=== PATIENT | male | born 1960 | race African-American/Black ===

== ENCOUNTER → 2018-02-25 15:26 | Outpatient (POV) | payer BC, SELFPAY | DX: Z00.00 Encounter for general adult medical examination without abnormal findings (principal) ==

== ENCOUNTER → 2018-10-19 11:21 | Outpatient (CLI) | payer BC, SELFPAY ==
--- NOTE | 2018-10-19 11:27 | XR_ITS ---
XR finger LT min 2V Ordering Physician: Misti Starks MD Patient Age: 58 years: Male HISTORY: ITS.REASON: LEFT THUMB PAIN Left thumb pain no injury TECHNIQUE: 3 views of the left thumb COMPARISON :None FINDINGS No fracture nor dislocation. Bones well mineralized. No erosive changes... Suggestion of mild early hypertrophic changes on the anterior base the first metacarpal at first carpal metacarpal joint which may reflect some early degenerative changes here.-But Unimpressive. Also Only perhaps scant slight narrowing at the radial aspect first MCP joint which may reflect some very early degenerative changes here. The IP joint of thumb intact. Only slight sharpening at its lateral margin IMPRESSION: . No prominent findings. Minor unimpressive observations. ... Suggestion of scant joint space narrowing lateral first MCP joint which may reflect some early degenerative changes here.. ... Only Question subtle early hypertrophic changes about the first carpal metacarpal joint. May also reflect some minor early degenerative features at this level.
== END ==
PROVIDERS: PCP Family Medicine; Visit Provider Family Medicine
DX: M79.645 Pain in left finger(s) (principal)
CPT/HCPCS: 73140

== ENCOUNTER → 2019-04-28 13:27 | Outpatient (POV) | payer BC, SELFPAY | DX: Z00.00 Encounter for general adult medical examination without abnormal findings (principal) ==

== ENCOUNTER → 2019-10-13 14:09 | Outpatient (POV) | payer BC, SELFPAY | DX: Z00.00 Encounter for general adult medical examination without abnormal findings (principal) ==

== ENCOUNTER → 2021-01-24 13:07 | Outpatient (POV) | payer BC, SELFPAY | DX: Z00.00 Encounter for general adult medical examination without abnormal findings (principal) ==

== ENCOUNTER → 2022-06-05 09:16 | Outpatient (CLI) | payer BC, SELFPAY | PROVIDERS: PCP Family Medicine; Visit Provider Surgery | DX: Z01.812 Encounter for preprocedural laboratory examination (principal); Z20.822 Contact with and (suspected) exposure to COVID-19; Z12.11 Encounter for screening for malignant neoplasm of colon; Z86.010 Personal history of colon polyps | CPT/HCPCS: C9803; U0003; U0005 ==

== ENCOUNTER 2022-06-07 07:14 | Day surgery (SDC) | payer BC, SELFPAY ==
[2022-06-05 08:43] VITALS: BMI 37.9
[2022-06-07 07:29] VITALS: BP 135/68; PULSE 110; RESP 18; TEMP 37.4; O2SAT 95
--- NOTE | 2022-06-07 07:52 | P.PN_ITS ---
[facility] Anesthesia Checklist - Patient Identification Patient Identification: Arm Band, Verbal (Name & ) - Structural Data Admitted From: Home Planned Operative Procedure/s: Colonoscopy Consent for Planned Operative Procedure(s) Verified: Yes Verified Documents: Surgical Consent - NPO Status Verified Time NPO: 04:00 - Airway Assessment C-Spine Mobility Assessed: Yes TMJ Mobility Assessed: Yes Dentition: Good Dentition - Neurological Assessment Level of Consciousness: Awake, Alert, Appropriate - Anesthesia Plan Anesthesia Risk discussed: Yes ASA Class: II Anesthesia Type: MAC [facility] History I have reviewed the patient's past medical history: Yes Medical History: Reports:: Internal Pacemaker Denies:: Cancer, Diabetes Mellitus Type 1, Diabetes Mellitus Type 2, MRSA, Seizures *Have you ever received a pneumonia vaccine?: Yes *Have you received a flu vaccine this season?: No Anesthesia experience/problems:: none Laterality Cases: Bilateral: Arthroscopy Hip Other Surgeries: Yes: Pacemaker Amputation: No - *Social History Last grade of school completed: Advanced degree Smoking Status: Never smoker Alcohol Intake: former Substance Use Type: denies use *Occupational Status:: retired *Travel in the last 8 weeks: None Family Hx:: Other
[2022-06-07 08:20] VITALS: O2SAT 95
[2022-06-07 08:53] VITALS: BP 99/65; PULSE 86; RESP 18; TEMP 36.9; O2SAT 92
--- NOTE | 2022-06-07 08:54 | HMH.SCOPE ---
- Procedure: Date: 06/07/22 Patient Date of :: 1960 Procedure Performed:: Total colonoscopy to terminal ileum with polypectomy using snare and biopsy Indications:: Patient is a 61-year-old male with family history of colon cancer in his grandfather and father. He has had colonoscopies in 1997 and in [address] Akins reportedly unremarkable. I performed colonoscopy in September 2016 and he had a diminutive polyp. 5-year follow-up colonoscopy was recommended. Performing Provider:: Gavino Brunner MD Referring Provider:: Hai Starks Sedation:: MAC sedation Procedure:: Patient was taken to endoscopy procedure room. He was positioned in lateral decubitus position. Adequate intravenous sedation was achieved. Digital examination was performed. Variable stiffness Olympus colonoscope was inserted via the anus. Is advanced to the cecum. Ileocecal valve and appendiceal orifice were clearly identified. Colonoscope was advanced a short distance into the terminal ileum which appeared grossly normal. Colonoscope was slowly withdrawn through the colon with careful surveillance. In the ascending colon there was a tiny sessile diminutive polyp which appeared adenomatous removed in a piecemeal fashion using biopsy forceps. In the descending colon there was a's possible lymphoid aggregate biopsied. In the descending colon just distal to this there were a couple of potential polyps, likely lymphoid aggregate, removed with biopsy forceps. Similar lesion was biopsied in the sigmoid colon. The rectosigmoid there were several hyperplastic appearing polyps removed with biopsy forceps. In the rectum there was a small adenomatous appearing polyp measuring about 5 mm removed with cold snare. Retroflexion within the rectum revealed nonbleeding internal hemorrhoids. Colonoscope was withdrawn. Findings:: Tiny diminutive adenomatous appearing cecal polyp Several possible lymphoid aggregate biopsied Hyperplastic appearing rectosigmoid polyps removed with biopsy Adenomatous appearing rectal polyp removed with cutting snare Recommendations:: Patient had a couple of adenomatous appearing polyps. Follow-up colonoscopy pending pathology. Given family history and adenomatous polyp likely 3 years. Complications:: None immediately apparent Estimated blood obtained (mL): 2
[2022-06-07 09:03] VITALS: BP 105/62; PULSE 82; RESP 18; TEMP 36.9; O2SAT 94
[2022-06-07 09:13] VITALS: BP 118/64; PULSE 83; RESP 18; TEMP 36.9; O2SAT 96
[2022-06-07 09:32] VITALS: BP 127/80; PULSE 84; RESP 18; TEMP 36.9; O2SAT 97
== END 2022-06-07 09:32 | disposition home or self-care (01) ==
LOC: OUTP 07:16
PROVIDERS: PCP Family Medicine; Visit Provider Surgery
PROC: 0DJD8ZZ Inspection of Lower Intestinal Tract, Via Natural or Artificial Opening Endoscopic (ICD-10-PCS; CPT 45380; principal; 2022-06-07 08:30)
DX: Z12.11 Encounter for screening for malignant neoplasm of colon (principal); K63.5 Polyp of colon; Z86.010 Personal history of colon polyps; Z80.0 Family history of malignant neoplasm of digestive organs; Z79.899 Other long term (current) drug therapy
CPT/HCPCS: 45380; 45385

== ENCOUNTER 2022-06-12 15:29 | Emergency (ER) | payer BC, OTHER, SELFPAY ==
[2022-06-12 15:29] VITALS: BP 108/61; PULSE 81; RESP 15; TEMP 36.8; O2SAT 96; BMI 38.0
--- NOTE | 2022-06-12 15:44 | HMH.EDGENADL ---
ED Disposition Clinical Impression: Transaminitis, Elevated serum creatinine Disposition: Home, Self-Care Condition on Discharge: Good Additional Instructions: At this point it was felt you are safe to be discharged home from the emergency department. Please stop taking your amlodipine and doxazosin until you follow-up with Dr. Starks. Please call and schedule an appointment with Dr. Starks in the coming days for continued evaluation. If new or worsening symptoms please do not hesitate to return to the emergency department. Referrals: Provider,Referral, [Referring] - - Critical Care Critical Care Time: No Attestation: On 06/12/22, the high probability of a clinically significant, sudden or life threatening deterioration of the following system(s) required my full and direct attention, intervention and personal management. The time I documented below is in addition to time spent performing reported procedures but includes the following listed in this critical care notation. Medical Decision Making - Joel Inquiry Pt receiving controlled substance: No Vital Signs: 06/12/22 15:29 06/12/22 16:00 Temperature 98.3 F Temperature Source Oral Pulse Rate 74 Pulse Rate [Right Radial] 81 Respiratory Rate 15 18 Blood Pressure 134/66 Blood Pressure [Right Arm] 108/61 L Blood Pressure Mean 82 Blood Pressure Mean [Right Arm] 76 Blood Pressure Source [Right Arm] Automatic Cuff Blood Pressure Position [Right Arm] Sitting 02 Sat by Pulse Oximetry 96 98 Oxygen Delivery Method Room Air - Lab Data Lab Results 06/12/22 15:39: WBC 8.9, RBC 5.05, Hgb 16.7, Hct 45.3, MCV 89.8, MCH 33.2 H, MCHC 37.0 H, RDW 13.7, Plt Count 144, MPV 11.4 H, Neut % (Auto) 73.7, Lymph % (Auto) 20.7, Beau[place] % (Auto) 4.2, Eos % (Auto) 0.5, Baso % (Auto) 0.8, Neut # (Auto) 6.5, Lymph # (Auto) 1.8, Beau[place] # (Auto) 0.4, Eos # (Auto) 0.0, Baso # (Auto) 0.1 06/12/22 15:39: Sodium 131 L, Potassium 3.8, Chloride 96 L, Carbon Dioxide 29, Anion Gap 9.8, BUN 29 H, Creatinine 1.40 H, Estimated Creat Clear 82, Estimated GFR 51 L, Est GFR ( Amer) 62, Glucose 150 H, Calcium 7.8 L, Magnesium 2.2, Total Bilirubin 3.4 H, AST 168 H, ALT 165 H, Alkaline Phosphatase 117, Total Protein 6.5, Albumin 3.3 L, Globulin 3.2, Albumin/Globulin Ratio 1.0 L, TSH 2.46, Thyroxine (T4) 9.9 Result diagrams: 06/12/22 15:39 06/12/22 15:39 Orders (Tests/Meds): ED MEDICATIONS Discontinued Medications Generic Name Dose Route Start Last Admin Trade Name Freq PRN Reason Stop Dose Admin Lactated Ringer's 1,000 mls @ 999 mls/hr 06/12/22 15:45 06/12/22 15:48 Lactated Ringer's 1000 Ml Bag IV 06/12/22 16:45 999 mls/hr .Q1H1M MIGUEL A Administration Ondansetron HCl 4 mg 06/12/22 15:48 06/12/22 15:49 Ondansetron 4mg/5ml Velma Udc PO 06/12/22 15:49 Not Given ONCE ONE Ondansetron HCl 4 mg 06/12/22 15:49 06/12/22 15:51 Ondansetron 4mg/2ml Vial IV 06/12/22 15:50 4 mg ONCE ONE Administration - ECG Data Tracing #1 Independently interpreted by me, rate is 78, rhythm is regular, axis is regular, QTC 434, no significant ST elevation in anatomical contiguous leads. Medical Decision Narrative: In summary this is a 61-year-old male with past medical history described above who presents emergency department for evaluation of isolated hypotension at clinic for routine visit. Patient is hemodynamically stable upon arrival, normotensive, afebrile, with a nonfocal exam and no acute complaints. Given that patient has had decreased p.o. intake and recent colonoscopy work-up will be conducted with hematologic labs, EKG. Initial interventions include crystalloid bolus, Zofran. Work-up is reviewed by me, hematologic labs are remarkable for elevated creatinine, elevated transaminases of undetermined significance. Patient underwent multiple hours in the emergency department where he was largely asymptomatic, had multiple systolics greater than 100. He
--- NOTE | 2022-06-12 15:49 | ECG_ITS ---
APPROVED REPORT Exam: Resting ECG HR:78 bpm ECG Measurements Heart Rate 78 AXES MD 134 P 43 QRSd 93 QRS 41 QT 401 T 26 QTc 434 Conclusion SINUS RHYTHM NORMAL ECG UNCONFIRMED REPORT Electronically signed by : David Linares MD 06/12/2022 20:59:31
[2022-06-12 16:00] VITALS: BP 134/66; PULSE 74; RESP 18; O2SAT 98
[2022-06-12 16:36] LABS: Alanine Aminotransferase 165 U/L (12-78); Albumin Level 3.3 g/dl (3.5-5.0); Alkaline Phosphatase 117 U/L (38-126); Anion Gap 9.8 mEq/L (5-15); Aspartate Amino Transferase 168 U/L (17-59); Bilirubin,Total 3.4 mg/dl (0.2-1.3); Blood Urea Nitrogen 29 mg/dl (9-20); Calcium 7.8 mg/dl (8.4-10.2); Carbon Dioxide 29 mmol/L (22.0-30.0); Chloride 96 mmol/L (98-107); Creatinine Clearance Estimated 82 mL/min (50-200); Estimated Glomerular Filt Rate 51 ml/min (>60); GFR (African American) 62 ML/MIN (>60); Globulin 3.2 g/dL (1.3-3.2); Glucose 150 mg/dl (74-100); Magnesium 2.2 mg/dl (1.6-2.3); Potassium 3.8 mmoL/L (3.5-5.1); Sodium 131 mmol/L (136-145); Total Protein,Serum 6.5 g/dl (6.3-8.2)
[2022-06-12 16:43] LABS: Basophils # 0.1 K/mm3 (0-0.2); Basophils % 0.8 % (0.1-2.0); Eosinophils % 0.5 % (0.1-12.0); Hematocrit 45.3 % (42.0-52.0); Hemoglobin 16.7 g/dL (14.1-18.0); Lymphocytes # 1.8 K/mm3 (0.7-4.5); Lymphocytes % 20.7 % (10-50); Mean Corpuscular Hemoglobin 33.2 pg (27.0-31.2); Mean Corpuscular Volume 89.8 fl (80-94); Mean Platelet Volume 11.4 fl (7.4-10.4); Monocytes # 0.4 K/mm3 (0.1-1.0); Monocytes % 4.2 % (1.7-9.3); Neutrophils # 6.5 K/mm3 (1.8-7.8); Neutrophils % 73.7 % (37.0-80.0); Platelet Count 144 K/mm3 (142-424); Red Blood Count 5.05 M/mm3 (4.60-6.20); Red Cell Distribution Width 13.7 % (11.5-17.5); White Blood Count 8.9 K/mm3 (4.8-10.8)
[2022-06-12 16:54] LABS: T4 (Thyroxine) 9.9 ug/dl (5.53-11.0)
[2022-06-12 17:07] LABS: Thyroid Stimulating Hormone 2.46 uIU/mL (0.465-4.68)
--- NOTE | 2022-06-12 17:50 | PC.NURSE ---
ROUNDED ON PT , IV FLUIDS INFUSING FAMILY AT BS
--- NOTE | 2022-06-12 18:13 | PC.NURSE ---
TALKING TO DR MUÑOZ
[2022-06-12 18:58] VITALS: BP 138/86; PULSE 89; RESP 18; TEMP 36.7; O2SAT 95
== END 2022-06-12 18:58 | disposition home or self-care (01) ==
PROVIDERS: Emergency Provider Emergency Medicine; PCP Family Medicine
DX: R74.01 Elevation of levels of liver transaminase levels (principal); R53.1 Weakness; R53.83 Other fatigue; I10 Essential (primary) hypertension
CPT/HCPCS: 80053; 83735; 84436; 84443; 85025; 93005; 96361; 96374; 99283; J2405

== ENCOUNTER 2025-02-04 12:53 | Outpatient (CLI) | payer MEDICARE, SELFPAY ==
[2025-02-04 13:52] LABS: Hemoglobin A1C 5.6 % (4.0-6.0)
--- OUTSIDE RECORDS SUMMARY | 2025-02-10 19:37 | XMS_ITS ---
Author Organization Unknown Problems Date Problem Result OnSetDate Icd10 SnomedCode Severity 02/05/2024 00:00:00 BMI 39.0-39.9,adult Z68.39 [id number]
--- OUTSIDE RECORDS SUMMARY | 2025-02-10 19:37 | XMS_ITS ---
Author Organization Unknown Medications Medication Instructions Effective Dates (start - stop) Status latanoprost 0.05 MG/ML Ophth almic Solution [id number]:00:00.000+00 :00 - Completed latanoprost 0.05 MG/ML Ophth almic Solution [id number]:00:00.000+00 :00 - Completed atenolol 100 MG Oral Tablet 2021T:00:00.000+00 :00 - Completed latanoprost 0.05 MG/ML Ophth almic Solution [id number]:00:00.000+00 :00 - Completed atenolol 100 MG Oral Tablet 2021:00:00.000+00 :00 - Completed atenolol 100 MG Oral Tablet 2022:00:00.000+00 :00 - Completed amlodipine 5 MG Oral Tablet 2022:00:00.000+00 :00 - Completed atenolol 100 MG Oral Tablet 2022:00:00.000+00 :00 - Completed cephalexin 500 MG Oral Capsule 2 [id number]:00:00.000+00 :00 - Completed latanoprost 0.05 MG/ML Ophth almic Solution [id number]:00:00.000+00 :00 - Completed - [id number]:00 :00.000+00 :00 - Completed latanoprost 0.05 MG/ML Ophth almic Solution [id number]:00:00.000+00 :00 - Completed latanoprost 0.05 MG/ML Ophth almic Solution [id number]:00:00.000+00 :00 - Completed allopurinol 300 MG Oral Tablet 2 [id number]:00:00.000+00 :00 - Completed alprazolam 0.5 MG Oral Tablet 25-05-11:00:00.000+00 :00 - Completed doxazosin 4 MG Oral Tablet :00:00.000+00 :00 - Completed allopurinol 300 MG Oral Tablet [id number]:00:00.000+00 :00 - Completed latanoprost 0.05 MG/ML Ophth almic Solution [id number]:00:00.000+00 :00 - Completed latanoprost 0.05 MG/ML Ophth almic Solution [id number]:00:00.000+00 :00 - Completed amlodipine 5 MG Oral Tablet 2021:00:00.000+00 :00 - Completed latanoprost 0.05 MG/ML Ophth almic Solution [id number]:00:00.000+00 :00 - Completed latanoprost 0.05 MG/ML Ophth almic Solution [id number]:00:00.000+00 :00 - Completed amlodipine 5 MG Oral Tablet 2021:00:00.000+00 :00 - Completed - [id number]:00 :00.000+00 :00 - Completed amlodipine 5 MG Oral Tablet 2022:00:00.000+00 :00 - Completed allopurinol 300 MG Oral Tablet 2 [id number]:00:00.000+00 :00 - Completed allopurinol 300 MG Oral Tablet 2 [id number]:00:00.000+00 :00 - Completed alprazolam 0.5 MG Oral Tablet 24-09-07:00:00.000+00 :00 - Completed alprazolam 0.5 MG Oral Tablet 25-07-08:00:00.000+00 :00 - Completed alprazolam 0.5 MG Oral Tablet 23-02-10:00:00.000+00 :00 - Completed alprazolam 0.5 MG Oral Tablet 20 26-12-05:00:00.000+00 :00 - Completed alprazolam 0.5 MG Oral Tablet 20 24-08-06:00:00.000+00 :00 - Completed alprazolam 0.5 MG Oral Tablet 24-06-10:00:00.000+00 :00 - Completed alprazolam 0.5 MG Oral Tablet 20 25-11-04:00:00.000+00 :00 - Completed alprazolam 0.5 MG Oral Tablet 20 25-04-12:00:00.000+00 :00 - Completed alprazolam 0.5 MG Oral Tablet 25-03-10::00.000+00 :00 - Completed alprazolam 0.5 MG Oral Tablet 20 24-01-08:00:00.000+00 :00 - Completed alprazolam 0.5 MG Oral Tablet 24-10-09:00:00.000+00 :00 - Completed hydrochlorothiazide 12.5 MG / irbesartan 300 MG Oral Tablet [id number]:00:00.000+ 00 :00 - Completed dorzolamide 20 MG/ML / timol ol 5 MG/ML Ophthalmic Solution [id number]:00:00.000+00 :00 - Completed dorzolamide 20 MG/ML / timol ol 5 MG/ML Ophthalmic Solution [id number]:00:00.000+00 :00 - Completed hydrochlorothiazide 12.5 MG / irbesartan 300 MG Oral Tablet [id number]:00:00.000+ 00 :00 - Completed dorzolamide 20 MG/ML / timol ol 5 MG/ML Ophthalmic Solution [id number]:00:00.000+00 :00 - Completed hydrochlorothiazide 12.5 MG / irbesartan 300 MG Oral Tablet [id number]:00:00.000+ 00 :00 - Completed dorzolamide 20 MG/ML / timol ol 5 MG/ML Ophthalmic Solution [id number]:00:00.000+00 :00 - Completed dorzolamide 20 MG/ML / timol ol 5 MG/ML Ophthalmic Solution [id number]:00:00.000+00 :00 - Completed dorzolamide 20 MG/ML / timol ol 5 MG/ML Ophthalmic Solution [id number]:00:00.000+00 :00 - Completed hydrochlorothiazide 12.5 MG / irbesartan 300 MG Oral Tablet [id number]:00:00.000+ 00 :00 - Completed Patient Care team information Name Category Status Period Participants - - Proposed period not known -
== END 2025-02-04 23:59 | disposition home or self-care (01) ==
LOC: LAB 12:56
PROVIDERS: PCP Family Medicine; Visit Provider Family Medicine
DX: R73.9 Hyperglycemia, unspecified (principal)
CPT/HCPCS: 36415; 83036

== ENCOUNTER 2025-06-10 06:20 | Day surgery (SDC) | payer MEDICARE, SELFPAY ==
[2025-06-08 15:35] VITALS: BMI 39.5
--- NOTE | 2025-06-10 06:18 | P.HP_ITS ---
HPI HPI HPI: Patient presents for follow-up colonoscopy. He is a 64-year-old male with family history of colon cancer. He had colonoscopies done by Dr. Akins in 1997 and in 2008 which were reportedly normal. I had performed colonoscopy 09/24/2016 at which time he had polyps removed and follow-up on 06/07/2022. In 2021 he had a tubular adenoma in the ascending colon and a rectal tubular adenoma along with multiple hyperplastic polyps. He has a family history of colon cancer in his paternal grandfather. Patient states that he did have some difficulty with the GoLytely prep. Given the multiple precancerous adenomatous polyps along with the family history recommendations were for 3-year follow-up colonoscopy. [facility] Disclaimer: The information contained in this section may have been updated after the patient was seen, as this information can be updated by other users. Medical History Gout Glaucoma Hyperlipidemia Hypertension Surgical History History of colonoscopy History of right hip replacement History of left hip replacement Family History Other Colon cancer Family history of hypertension Social History Smoking Status: Never smoker alcohol intake: never substance use type: denies use current occupational status: retired Travel in the last 8 weeks?: None Have you lived/traveled outside US in past 30 days?: No Contact w/someone who lives/traveled outside US past 30 days?: No Exposure to someone with infectious disease in past 14 days?: No Do you have a fever (greater than 100.4 F or 38 C)?: No Have you tested positive for COVID-19?: No Exposed to someone with COVID-19 in past 14 days?: No Do you have a sore throat?: No Do you have a cough?: No Do you have any weakness?: No Are you experiencing any nausea/vomitting?: No Do you have any diarrhea?: No Are you experiencing any unusual bleeding?: No Do you have any muscle aches/pain?: No Do you have any abdominal pain?: No Are you experiencing loss of taste or smell?: No Other Medical History Have you received the Flu Vaccine for this season: No Have you received the Pneumonia Vaccine: No Review of Systems Review of Systems Review of systems:: pertinent systems reviewed and negative unless documented below Meds Home Medications and Allergies Home Medications ?Medication ?Instructions ?Recorded ?Confirmed ?Type allopurinol 300 mg tablet 300 mg PO DAILY . 06/05/22 0 06/10/25 History amlodipine 5 mg tablet 10 mg PO DAILY High blood pr essure 06/05/22 06/10/25 Hist ory aspirin 81 mg tablet,delayed 81 mg PO DAILY heart heal th 06/05/22 06/10/25 History release atenolol 100 mg tablet 100 mg PO DAILY High blood p ressure 06/05/22 06/10/25 History dorzolamide 22.3 mg-timolol 6.8 1 dose ophthalmic (eye ) BID 06/05/22 06/10/25 History mg/mL eye drops (Cosopt) Glaucoma latanoprost 0.005 % eye drops 2.5 ml ophthalmic (eye) DAILY 06/05/22 06/10/25 History Glaucoma alprazolam 0.5 mg tablet (Xanax) 0.5 mg PO DAILY 06/2006/10/25 History sodium,potassium,mag sulfates 17.5 See Rx Instructions PO .COMPLEX 05/09/25 06/10/25 Rx gram-3.13 gram-1.6 gram oral soln #354 mL (Suprep Bowel Prep Kit) doxazosin 4 mg tablet 1 mg PO DAILY 06/08/2506/10 History irbesartan 300 1 tab PO DAILY 06/08/2506/27 History mg-hydrochlorothiazide 12.5 mg tablet New Prescriptions to Start Prescriptions: Allergies Allergy/AdvReac Type Severity Reaction Status Date / Time No Known Allergies Allergy Verified 06/08/25 15:22 Exam Data for Last 24 hours I & O for Last 24 hours: Intake & Output 06/07/25 06/08/25 06/09/25 06/10/25 11:59 11:59 11:59 11:59 Weight 245 lb Constitutional Constitutional: no acute distress *Routine HEENT Exam Head: Present normocephalic Eye: Present EOMI and PERRL ENT: Present mucous membranes moist *Routine Neck Exam Neck: Present supple; Absent lymphadenopathy *Routine Respiratory Exam Respiratory: Present CTA bilaterally *Routine Cardiovascular Exam Cardiovascular: Present RRR *Routine Abdominal Exam Abdominal: Present soft and normoactive bowel sounds; Absent tenderness *Routine Rectal Exam Rectal:: deferred *Routine Genitalia Exam Genitalia:: deferred *Routine Extremities Exam Extremities: Absent cyanosis, clubbing or edema *Routine Skin Exam Skin: Present warm; Absent rash *Routine Neurological Exam Neurological: Present alert and oriented X3 Assessment and Plan *Assessment and plan (1) Tubular adenoma of colon: Status: Acute Category: Medical Code(s): D12.6 - Benign neoplasm of colon, unspecified Plan Plan to proceed with colonoscopy
[2025-06-10] MEDS: LACTATED RINGERS 1000ML 1,000 ML 50 ML IV (06:39)
[2025-06-10 06:44] VITALS: BP 156/83; PULSE 106; RESP 18; TEMP 36.1; O2SAT 95
[2025-06-10 07:46] VITALS: BP 86/45; PULSE 81; RESP 16; TEMP 36.4; O2SAT 90
--- NOTE | 2025-06-10 07:47 | P.PCN_ITS ---
Procedure: Date: 06/10/25 Patient Date of :: 1960 Procedure Performed:: Total colonoscopy to terminal ileum with multiple polypectomy . Indications:: Patient presents for follow-up colonoscopy. He is a 64-year-old male with family history of colon cancer. He had colonoscopies done by Dr. Akins in 1997 and in 2008 which were reportedly normal. I had performed colonoscopy 09/24/2016 at which time he had polyps removed and follow-up on 06/07/2022. In 2021 he had a tubular adenoma in the ascending colon and a rectal tubular adenoma along with multiple hyperplastic polyps. He has a family history of colon cancer in his paternal grandfather. Patient states that he did have some difficulty with the GoLytely prep. Given the multiple precancerous adenomatous polyps along with the family history recommendations were for 3-year follow-up colonoscopy. Performing Provider:: Gavino Brunner MD Referring Provider:: Hai Starks MD Sedation:: MAC sedation Procedure:: Patient history was obtained and appropriate physical examination was performed. Patient's medications and allergies were reviewed. Informed consent was obtained after explaining the benefits, alternatives, and risks of the procedure including, but not limited to, bleeding, perforation, missed lesions, and adverse reaction to anesthesia medications. Patient was transported to endoscopy procedure room. Patient was connected to monitoring devices. Throughout the procedure the patient's blood pressure, pulse, and oxygen saturations were monitored continuously. Patient identification and planned procedure were verified by the staff. Patient was positioned in lateral decubitus position. Digital anorectal exam was performed. Variable stiffness Olympus colonoscope was inserted and advanced under direct visualization to the cecum. Adequacy of the colonic preparation was noted. The colonoscope was advanced a short distance into the terminal ileum. The colonoscope was then slowly withdrawn while carefully exami loli the color, texture, anatomy, and integrity of the mucosoa circumferentially. Within the rectum retroflexion was performed. Colonoscope was then withdrawn. Impression: Colonic preparation was excellent. In the ascending colon there was a moderate pedunculated adenomatous polyp removed with hot snare. Distal to this in the ascending: There were a couple of small adenomatous appearing polyps. 1 of these was removed with cold snare with residual polypoid tissue removed with biopsy forceps. In the same general region near the hepatic flexure there was an additional tiny polyp removed with cold snare. In the transverse colon there was what appeared to be a small submucosal lipoma. Several biopsies were obtained which resulted in some enucleation of the lipoma which was biopsied. I n the rectosigmoid region there were a couple of hyperplastic appearing polyps which were removed with biopsy forceps. . Findings:: Polyps as noted above. He had at least 3 adenomatous appearing polyps, largest in the ascending colon removed with hot snare. Probable submucosal lipoma, biopsy Hyperplastic appearing polyps at the rectosigmoid and rectum Recommendations:: Repeat colonoscopy pending pathology. Given family history and personal history likely 2 to 3 years. Complications:: None immediately apparent Estimated blood obtained (mL): 1 Colonoscopy Component Colonoscopy Component Was a colonoscopy performed during today's procedure?: Yes Recommended follow up colonoscopy of at least 10 years?: No If no, follow up colonoscopy recommended in ___ years?: 2-3 Reason for not recommending >/= 10 yr follow-up interval?: See above
[2025-06-10 07:56] VITALS: BP 101/64; PULSE 79; RESP 16; O2SAT 94
[2025-06-10 08:06] VITALS: BP 108/72; PULSE 77; RESP 16; O2SAT 94
[2025-06-10 08:16] VITALS: BP 117/64; PULSE 77; RESP 18; O2SAT 95
--- NOTE | 2025-06-10 08:16 | EXP.ANES.CKL ---
[facility] Disclaimer: The information contained in this section may have been updated after the patient was seen, as this information can be updated by other users. Medical History Gout Glaucoma Hyperlipidemia Hypertension Surgical History History of colonoscopy History of right hip replacement History of left hip replacement Family History Other Colon cancer Family history of hypertension Social History Smoking Status: Never smoker alcohol intake: never substance use type: denies use current occupational status: retired Travel in the last 8 weeks?: None [facility] Anesthesia Checklist Patient Identification Patient Identification: Arm Band Structural Data Admitted From: Home Planned Operative Procedure/s: Colonoscopy Consent for Planned Operative Procedure(s) Verified: Yes Verified Documents: Surgical Consent and History and Physical NPO Status Verified Time NPO: 00:00 Additional verifications Anesthesia Reactions: No Airway Assessment Mallampati Score:: Class II C-Spine Mobility Assessed: Yes TMJ Mobility Assessed: Yes Dentition: Good Dentition Neurological Assessment Level of Consciousness: Awake, Alert and Appropriate Anesthesia Plan Anesthesia Risk discussed: Yes Anesthesia Plan: Verified ASA Class: II Anesthesia Type: MAC
[2025-06-10 08:30] VITALS: BP 123/65; PULSE 80; RESP 18; TEMP 36.4; O2SAT 95
== END 2025-06-10 08:30 | disposition home or self-care (01) ==
PROVIDERS: PCP Family Medicine; Visit Provider Surgery
PROC: 0DJD8ZZ Inspection of Lower Intestinal Tract, Via Natural or Artificial Opening Endoscopic (ICD-10-PCS; CPT 45380; principal; 2025-06-10 07:30)
DX: D12.2 Benign neoplasm of ascending colon (principal); K63.5 Polyp of colon; Z80.0 Family history of malignant neoplasm of digestive organs; Z86.0101 Personal history of adenomatous and serrated colon polyps; I10 Essential (primary) hypertension; E78.5 Hyperlipidemia, unspecified; M10.9 Gout, unspecified; H40.9 Unspecified glaucoma; Z79.899 Other long term (current) drug therapy; Z79.82 Long term (current) use of aspirin
CPT/HCPCS: 45380; 45385; J2003; J2704; J7120

== ENCOUNTER 2025-07-06 22:32 | Emergency (ER) | payer MEDICARE, SELFPAY ==
--- OUTSIDE RECORDS SUMMARY | 2024-04-16 06:15 | XMS_ITS ---
Author Organization [facility] Address [address] [place] [id number] Care Team Providers Care Historical Guide Name Role Phone Dereck Starks Primary Care Provider [phone] Allergies No Known Allergies Results Component Value Reference Range Notes Glycohemoglobin A1c (in hous e) Reviewed date:04/19/2024 11:24:04 AM Interpretation:5.8% Performing Lab: Notes/Report: 5.8% glycohemoglobin 5.8% 5 - 6.5 % P-Comprehensive Metabolic Pa ermelinda (CMP) Reviewed date:04/19/2024 11:24:04 AM Interpretation:gluc 123 Performing Lab: Notes/Report: Test performed by [facility], [facility] [address] [place] [address] , [address], [place] [address] Michael Bonilla MD, Ramp Boss CLIA: [id number] Sodium 142 135-145 mEq/L Potassium 4.0 3.5-5.3 mEq/L Chloride 102 97-108 mEq/L CO2 26 22-32 mEq/L Glucose 123 65-99 mg/dL BUN 12 8-23 mg/dL Creatinine 1.09 0.70-1.30 mg/dL Calcium 9.5 8.6-10.4 mg/dL eGFR by Creatinine 75 >59 mL/min/1.73m2 Protein 7.3 6.0-8.3 g/dL Albumin 4.2 3.5-5.3 g/dL Alkaline Phosphatase 114 40-129 IU/L ALT (SGPT) 29 <5-55 IU/L AST (SGOT) 20 <5-46 IU/L Bilirubin, Total 0.9 <0.2-1.2 mg/dL A/G Ratio 1.4 1.1-2.5 mg/dL REASON FOR VISIT 2 mths w fasting labs, Needs PSA & Prevnar vaccine Medications Medication SIG (Take, Route, Frequency, Duration) Notes Start Date End Date Status Atenolol 100 MG TAKE 1 TABLET BY MOUTH EVERY DAY; Duration: 90 days Active Xanax 0.5 MG 1 tab(s) orally 2 times a day 02/05/2024 Active amLODIPine Besylate 10 MG TAKE 1 TABLET BY MOUTH EVERY DAY; Duration: 90 Active Allopurinol 300 MG TAKE 1 TABLET BY MOUTH EVERY DAY; Duration: 90 days Active Irbesartan-hydroCHLOROthiazi de 300-12.5 MG 1 tab(s) orally once a day; Duration: 90 days Active Xalatan 0.005 % 1 gtt in each eye at bedtime Active hydroCHLOROthiazide 25 MG 1 tab(s) orall y once daily 01/19/2013 Active Aspirin 81 MG 1 TAB(S) ORALLY ONCE A DAY 09/04/2010 Active Cosopt 22.3-6.8 MG/ML 1 gtt in each eye twice a day Active Slo-Niacin 250 MG 1 tab(s) orally at bedtime 09/04/2010 Active Vital Signs Blood pressure systolic 132 mm Hg 04/16/20 24 Blood pressure diastolic 90 mm Hg 024 Heart Rate 71 /min 04/16/2024 Height 67.25 in 04/16/2024 Weight 250.8 lbs 04/16/2024 BMI 38.99 kg/m2 04/16/2024 Encounters Encounter Location Date Provider Diagnosis [facility] [address] [facility] [address], [place] [id number] 04/16/2024 Dereck Starks Essential hypertensi on I10 ; Generalized anxiety disorder F41.1 and BMI 39.0-39.9,adult Z68.39 Assessments Encounter Date Diagnosis (ICD Code) Assessment Notes Treatment Notes Treatment Clinical Notes Section Notes 04/16/2024 Essential hypertension (ICD-10 - I10) 04/16/2024 Generalized anxiety disorder (ICD-10 - F41.1) 04/16/2024 BMI 39.0-39.9,adult (ICD-10 - Z68.39) Plan Of Treatment Next Appt Details Follow Up: 4 Months, Reason: Provider Name:Dereck Voss er, 09/09/2025 11:00:00 AM, [address], [address], [place], [id number], Progress Notes * VU LOPEZ SrDOB: (64 yo M)Acc No.[id number]:04/16/2024 Progress Notes Patient: VU DEGROOT Sr Provider: Dereck Starks M.D. :1960 A ge:63 Y S ex:Male Date:04/16/2024 Address:[address] , [place], [id number] Subjective: * Chief Complaints: * 1 . 2 mths w fasting labs. 2. Needs PSA & Prevnar vaccine. * HPI: C ardiology: The patient is here for a check up on Hypertension. Pt states he is not checking his BP at home. Pt is fasting. Pt states refills are not needed at this time. Denies : Chest Pain. D enies : Short of Breath. D enies : Dizziness. D enies : Palpitations. * ROS: D ERMATOLOGY: no R mindy. n o H caroline. G ASTROENTEROLOGY: no N ausea. n o V omiting. n o D iarrhea.? U ROLOGY: no D ifficulty urinating. n o B lood in urine. * Medical History: H ypertension, wide angle glaucoma, followed by Dr. Ordaz, 11/26/10 Uric Acid 7.7, Dtap 2012 ER, 02/04/19 [facility] blood work, PSA=1.42, TSH=2.17, Covid vaccine J&J January 2021, COVID 19 Booster, Pfizer, 10/11/2021. * Surgical History: p acemaker for bladder 2003, Left hip with degenerative changes 11/2010, Right Hip replacement 06/04/2017, Left hip replacement 07/30/17, Colonoscopy, Dr. Brunner 09/2016, Colonoscopy, Dr. Allran, 2 tubular adenomas 06/07/2022. * Family History: F ather: , heart problems. M other: alive. 1 brother(s) , 5 sister(s) . 2 son(s) , 1 daughter(s) . . * Social History: C URRENT TOBACCO USE S moking Status: Patient does NOT smoke. C affeine: no. Home smoke detector use: yes. Marital Status: . Past smoking status: no, Smoking status: Does not smoke. * Medications: T aking Slo-Niacin 250 MG Tablet Extended Release 1 tab(s) orally at bedtime , Taking Aspirin 81 MG ENTERIC COATED TABLET 1 TAB(S) ORALLY ONCE A DAY , Taking Cosopt 22.3-6.8 MG/ML Solution 1 gtt in each eye twice a day , Taking Xalatan 0.005 % Solution 1 gtt in each eye at bedtime , Taking hydroCHLOROthiazide 25 MG Tablet 1 tab(s) orally once daily , Taking Atenolol 100 MG Tablet TAKE 1 TABLET BY MOUTH EVERY DAY , Taking Allopurinol 300 MG Tablet TAKE 1 TABLET BY MOUTH EVERY DAY , Taking Irbesartan-hydroCHLOROthiazide 300-12.5 MG Tablet 1 tab(s) orally once a day , Taking Xanax 0.5 MG Tablet 1 tab(s) orally 2 times a day , Taking amLODIPine Besylate 10 MG Tablet TAKE 1 TABLET BY MOUTH EVERY DAY , Medication List reviewed and reconciled with the patient * Allergies: N .K.D.A. Objective: * Vitals: W t:250.8, Temp:98.4, BP:132/90, HR:71, Nurse:NICOLASA, Ht: 67.25, Repeat BP:140/80, BMI:38.99. * Examination: G eneral Examination: General Appearance: N AD. H EENT: u nremarkable.?Oral cavity: n o lesions, mucosa moist and WNL, no erythema. N ramirez: s upple, no lymphadenopathy. C hest: n ormal shape and expansion. H eart: R SR. L ungs: c lear to auscultation. A bdomen: obese, soft and nontender, no organomegaly or masses. N eurologic Exam: I ntact, gait normal. S kin: n ormal, no rash. P eripheral pulses:?normal . E xtremities: 2 + leg edema. Assessment: * Assessment: 1. E ssential hypertension - I10 (Primary) 2 . G eneralized anxiety disorder - F41.1 3 . B OK 39.0-39.9,adult - Z68.39 Plan: * Treatment: Value Reference Range A /G Ratio 1.4 1.1-2.5 - mg/dL * A lbumin 4.2 3.5-5.3 - g/dL * A lkaline Phosphatase 114 40-129 - IU/L * A LT (SGPT) 29 <5-55 - IU/L * A ST (SGOT) 20 <5-46 - IU/L * B ilirubin, Total 0.9 <0.2-1.2 - mg/dL * B UN 12 8-23 - mg/dL * C alcium 9.5 8.6-10.4 - mg/dL * C hloride 102 97-108 - mEq/L * C O2 26 22-32 - mEq/L * C reatinine 1.09 0.70-1.30 - mg/dL * G lucose 123 H 65-99 - mg/dL * P otassium 4.0 3.5-5.3 - mEq/L * S odium 142 135-145 - mEq/L * P rotein 7.3 6.0-8.3 - g/dL * e GFR by Creatinine 75 >59 - mL/min/1.73m2 * Kelsea Galan 04/19/2024 11:23 :57 AM >See phone encounter 2.?BMI 39.0-39.9,adult?LAB: Glycohemoglobin A1c (in house) (Collection Date & Time - 04/16/2024)? 5.8%* Value Reference Range g lycohemoglobin 5.8% 5 - 6.5 % * Lizet Swanson 04/16/2024 12:0 1:32 PM > Kelsea Galan 04/19/2024 11:23:57 AM >See phone encounter * Follow Up: 4 Months * Images: Billing Information: * Visit Code: 20380 Office Visit, Est Pt., Level 4. * Procedure Codes: * Electronic signature of Dereck Starks MD on 07/06/2025 at 10:55 PM EDT Sign off status: Pending * Provider: Dereck Starks M.D. Date: 0 04/16/2024 Generated for Jose mustafa/Alex/Sonia on: 0 07/06/2025 10:55 PM EDT History and Physical Notes * HPI (History of Present Illness) Category Sub-Category Detail Notes Category Not es Cardiology Short of Breath Chest Pain Palpitations Dizziness Examination Category Sub-Category Detail Notes Category Not es General Examination HEENT: unremarkable Heart: RSR Lungs: clear to auscultatio n Abdomen: obese, soft and nont jude, no organomegaly or masses Extremities: 2+ leg edema General Appearance: NAD Skin: normal, no rash Neurologic Exam: Intact, gait normal Neck: supple, no lymphaden opathy Oral cavity: no lesions, mucosa m oist and WNL, no erythema Peripheral pulses: normal Chest: normal shape and exp ansion
--- OUTSIDE RECORDS SUMMARY | 2024-08-20 06:30 | XMS_ITS ---
Author Organization [facility] Address [address] [place] [id number] Care Team Providers Care Fur Finisher Seamstress Name Role Phone Dereck Starks Primary Care Provider Allergies No Known Allergies Results Component Value Reference Range Notes P-Comprehensive Metabolic Pa ermelinda (CMP) Reviewed date:08/25/2024 10:03:26 AM Interpretation:non-fasting, satisfactory Performing Lab: Notes/Report: Test performed by [facility], [facility] [address] [place] [address] , [address], [place] [address] Michael Bonilla MD, Volunteer Recruiter CLIA: [id number] Sodium 138 135-145 mmol/L Potassium 3.9 3.5-5.3 mmol/L Hemolysis present. Results should be interpreted in conjunction with clinical presentation and history. Chloride 99 97-108 mmol/L CO2 26 22-32 mmol/L Glucose 112 65-99 mg/dL BUN 14 8-23 mg/dL Creatinine 1.00 0.70-1.30 mg/dL Calcium 9.7 8.6-10.4 mg/dL eGFR by Creatinine 83 >59 mL/min/1.73m2 Protein 7.8 6.0-8.3 g/dL Albumin 4.4 3.5-5.3 g/dL Alkaline Phosphatase 124 40-129 IU/L ALT (SGPT) 29 <5-55 IU/L AST (SGOT) 25 <5-46 IU/L Bilirubin, Total 0.9 <0.2-1.2 mg/dL A/G Ratio 1.3 1.1-2.5 P-PSA Reviewed date:08/25/2024 10:03:47 AM Interpretation:Normal Performing Lab: Notes/Report: Test performed by [facility], [facility] [address] [place] [address] , [address], [place] [address] Michael Bonilla MD, Volunteer Recruiter CLIA: [id number] PSA 2.20 <4.00 ng/mL Please note this is an ultrasensitive PSA assay with a lower limit of detection of 0.014 ng/mL. This test is performed by the Joey ECLIA methodology. Values obtained with different assay methods or kits cannot be directly compared. REASON FOR VISIT 4 months, Needs labs with PSA, colon cancer screening, Prevnar, & flu vaccines Medications Medication SIG (Take, Route, Frequency, Duration) Notes Start Date End Date Status Xanax 0.5 MG 1 tab(s) orally 2 times a day 07/12/2024 Active Atenolol 100 MG TAKE 1 TABLET BY MOUTH EVERY DAY; Duration: 90 days Active Irbesartan-hydroCHLOROthiazi de 300-12.5 MG 1 tab(s) orally once a day; Duration: 90 days Active amLODIPine Besylate 10 MG TAKE 1 TABLET BY MOUTH EVERY DAY; Duration: 90 days Active Allopurinol 300 MG TAKE 1 TABLET BY MOUTH EVERY DAY; Duration: 90 days Active Xalatan 0.005 % 1 gtt in each eye at bedtime Active Cosopt 22.3-6.8 MG/ML 1 gtt in each eye twice a day Active Aspirin 81 MG 1 TAB(S) ORALLY ONCE A DAY 09/04/2010 Active Slo-Niacin 250 MG 1 tab(s) orally at bedtime 09/04/2010 Active hydroCHLOROthiazide 25 MG 1 tab(s) orall y once daily 01/19/2013 Active Vital Signs Blood pressure systolic 130 mm Hg 08/20/20 24 Blood pressure diastolic 90 mm Hg 024 Heart Rate 71 /min 08/20/2024 Height 67.25 in 08/20/2024 Weight 248.2 lbs 08/20/2024 BMI 38.58 kg/m2 08/20/2024 Encounters Encounter Location Date Provider Diagnosis [facility] [address] [place], [place] [id number] 08/20/2024 Dereck Starks Essential hypertensi on I10 ; Hyperlipidemia, unspecified hyperlipidemia type E78.5 ; History of bilateral hip replacements Z96.643 ; Generalized anxiety disorder F41.1 and Benign prostatic hyperplasia with lower urinary tract symptoms, unspecified morphology N40.1 Assessments Encounter Date Diagnosis (ICD Code) Assessment Notes Treatment Notes Treatment Clinical Notes Section Notes 08/20/2024 Essential hypertension (ICD-10 - I10) 08/20/2024 Hyperlipidemia, unspecified hyperlipidemia type (ICD-10 - E78.5) 08/20/2024 History of bilateral hip replacements (ICD-10 - Z96.643) 08/20/2024 Generalized anxiety disorder (ICD-10 - F41.1) 08/20/2024 Benign prostatic hyperplasia with lower urinary tract symptoms, unspecified morphology (ICD-10 - N40.1) 08/20/2024 Other Refuses immunizations Plan Of Treatment Treatment Notes Assessment Notes Other Refuses immunization s Next Appt Details Follow Up: 5 months, Reason: Provider Name:Dereck Voss er, 09/09/2025 11:00:00 AM, [address] [facility] [address] [facility], [address] , [place], [place], [id number], Progress Notes * TIM LOPEZKALANI SrDOB: (64 yo M)Acc No.[id number]:08/20/2024 Progress Notes Patient: VU DEGROOT Sr Provider: Dereck Starks M.D. :1960 A ge:63 Y S ex:Male Date:08/20/2024 Address:[address] [place] [address] [id number] Subjective: * Chief Complaints: * 1 . 4 months. 2. Needs labs with PSA, colon cancer screening, Prevnar, & flu vaccines. * HPI: C ardiology: The patient is here for a check up on Hypertension and Hyperlipidemia. Pt states he is doing good and denies any new concerns. Pt is not fasting. Denies : Chest Pain. D enies : [...] 07/30/17, Colonoscopy, Dr. Brunner 09/2016, Colonoscopy, Dr. Brunner, 2 tubular adenomas 06/07/2022. * Family History: [...] 1 tab(s) orally once daily , Taking amLODIPine Besylate 10 MG Tablet TAKE 1 TABLET BY MOUTH EVERY DAY , Taking Allopurinol 300 MG Tablet TAKE 1 TABLET BY MOUTH EVERY DAY , Taking Irbesartan-hydroCHLOROthiazide 300-12.5 MG Tablet 1 tab(s) orally once a day , Taking Atenolol 100 MG Tablet TAKE 1 TABLET BY MOUTH EVERY DAY , Taking Xanax 0.5 MG Tablet 1 tab(s) orally 2 times a day , Medication List reviewed and reconciled with the patient * Allergies: N .K.D.A. Objective: * Vitals: W t:248.2, Temp:99.2, BP:130/90, HR:71, Nurse:NICOLASA, Ht: 67.25, BMI:38.58. * Examination: G eneral Examination: General Appearance: [...] ssential hypertension - I10 (Primary) 2 . H yperlipidemia, unspecified hyperlipidemia type - E78.5 3 . H istory of bilateral hip replacements - Z96.643 4 . G eneralized anxiety disorder - F41.1 5 . B enign prostatic hyperplasia with lower urinary tract symptoms, unspecified morphology - N40.1 Plan: * Treatment: Value Reference Range A /G Ratio 1.3 1.1-2.5 - * A lbumin 4.4 3.5-5.3 - g/dL * A lkaline Phosphatase 124 40-129 - IU/L * A LT (SGPT) 29 <5-55 - IU/L * A ST (SGOT) 25 <5-46 - IU/L * B ilirubin, Total 0.9 <0.2-1.2 - mg/dL * B UN 14 8-23 - mg/dL * C alcium 9.7 8.6-10.4 - mg/dL * C hloride 99 97-108 - mmol/L * C O2 26 22-32 - mmol/L * C reatinine 1.00 0.70-1.30 - mg/dL * G lucose 112 H 65-99 - mg/dL * P otassium 3.9 3.5-5.3 - mmol/L * S odium 138 135-145 - mmol/L * P rotein 7.8 6.0-8.3 - g/dL * e GFR by Creatinine 83 >59 - mL/min/1.73m2 * Britta Al 08/25/2024 10 :03:20 AM > , Patient informed of normal results. 2.?Benign prostatic hyperplasia with lower urinary tract symptoms, unspecified morphology?LAB: P-PSA (Collection Date & Time - 08/20/2024 10:35 AM)?Normal* Value Reference Range P SA 2.20 <4.00 - ng/mL * Britta Al 08/25/2024 10 :03:36 AM > , Patient informed of normal results. 3.?Others? Notes: Refuses immunizations?? * Follow Up: 5 months * Images: Billing Information: * Visit Code: 79232 Office Visit, Est Pt., Level 4. * Procedure Codes: * Electronic signature of Dereck Starks MD on 07/06/2025 at 10:55 PM EDT Sign off status: Pending * Provider: Dereck Starks M.D. Date: 1 Generated for Printi ng/Faxing/eTransmitting on: 0 07/06/2025 10:55 PM EDT History [...]
--- OUTSIDE RECORDS SUMMARY | 2025-01-07 05:45 | XMS_ITS ---
Author Organization [facility] Address [address] [place] [id number] Care Team Providers Care Silicator Name Role Phone Dereck Starks Primary Care Provider Allergies No Known Allergies Results Component Value Reference Range Notes P-Comprehensive Metabolic Pa ermelinda (CMP) Reviewed date:02/04/2025 04:26:37 PM Interpretation:gluc 137, see f/u appt 02/04/2025 Performing Lab: Notes/Report: Test performed by [facility] [address] [place] [address] , [address], [place] [address] Michael Bonilla MD, [employer] CLIA: [id number] Sodium 141 135-145 mmol/L Potassium 4.1 3.5-5.3 mmol/L Chloride 100 97-108 mmol/L CO2 28 22-32 mmol/L Glucose 137 65-99 mg/dL BUN 13 8-23 mg/dL Creatinine 1.10 0.70-1.30 mg/dL Calcium 10.1 8.6-10.4 mg/dL eGFR by Creatinine 74 >59 mL/min/1.73m2 Protein 8.1 6.0-8.3 g/dL Albumin 4.6 3.5-5.3 g/dL Alkaline Phosphatase 129 40-129 IU/L ALT (SGPT) 23 <5-55 IU/L AST (SGOT) 18 <5-46 IU/L Bilirubin, Total 0.8 <0.2-1.2 mg/dL A/G Ratio 1.3 1.1-2.5 REASON FOR VISIT 5 month check Medications Medication SIG (Take, Route, Frequency, Duration) Notes Start Date End Date Status Allopurinol 300 MG 1 tablet Orally Once a day; Duration: 30 days Active Atenolol 100 MG 1 tablet Orally Once a day; Duration: 30 days Active Xanax 0.5 MG 1 tab(s) orally 2 times a day 12/17/2024 Active Irbesartan-hydroCHLOROthiazi de 300-12.5 MG 1 tab(s) orally once a day; Duration: 30 days Active Doxazosin Mesylate 1 MG 1 tablet Orally At Bed Time 01/07/2025 Active Aspirin 81 MG 1 TAB(S) ORALLY ONCE A DAY 09/04/2010 Active hydroCHLOROthiazide 25 MG 1 tab(s) orall y once daily 01/19/2013 Active amLODIPine Besylate 10 MG TAKE 1 TABLET BY MOUTH EVERY DAY; Duration: 90 days Active Cosopt 22.3-6.8 MG/ML 1 gtt in each eye twice a day Active Xalatan 0.005 % 1 gtt in each eye at bedtime Active Slo-Niacin 250 MG 1 tab(s) orally at bedtime 09/04/2010 Active Vital Signs Blood pressure systolic 140 mm Hg 01/08/20 25 Blood pressure diastolic 100 mm Hg 025 Heart Rate 72 /min 01/07/2025 Height 67.25 in 01/07/2025 Weight 248.0 lbs 01/07/2025 BMI 38.55 kg/m2 01/07/2025 Encounters Encounter Location Date Provider Diagnosis [facility] [address], [place] [id number] 01/07/2025 Dereck Starks Essential hypertensi on I10 ; Non morbid obesity due to excess calories E66.09 ; Generalized anxiety disorder F41.1 and History of bilateral hip replacements Z96.643 Assessments Encounter Date Diagnosis (ICD Code) Assessment Notes Treatment Notes Treatment Clinical Notes Section Notes 01/07/2025 Essential hypertension (ICD-10 - I10) 01/07/2025 Non morbid obesity due to excess calories (ICD-10 - E66.09) 01/07/2025 Generalized anxiety disorder (ICD-10 - F41.1) He wants to try to decrease his Alprazolam dose. I suggested decreasing by a half dose a day. 01/07/2025 History of bilateral hip replacements (ICD-10 - Z96.643) Plan Of Treatment Medication Medication Name Sig Start Date Stop Date Notes Doxazosin Mesylate 1 MG 1 tablet Orally At Bed Time 2024 Treatment Notes Assessment Notes Generalized anxiety disorder He wants to try to decrease his Alprazolam dose. I suggested decreasing by a half dose a day. Next Appt Details Follow Up: 4 Weeks, Reason: Provider Name:Dereck Voss er, 09/09/2025 11:00:00 AM, [address], [address], [place], [id number], Progress Notes * VU LOPEZ SrDOB: (64 yo M)Acc No.[id number]:01/07/2025 Progress Notes Patient: VU DEGROOT Sr Provider: Dereck Starks M.D. :1960 A ge:64 Y S ex:Male Date:01/07/2025 Address:[address] [place] [place] [address], [place], [id number] Subjective: * Chief Complaints: * 1 . 5 month check. * HPI: C ardiology: The patient is here for a check up on Hypertension and Hyperlipidemia. Pt states he is doing good and denies any new concerns. Pt is fasting. Denies : Chest Pain. D enies [...] Uric Acid 7.7, Dtap 2012 ER, 02/04/19 [facility] blood work, PSA=1.42, TSH=2.17, Covid vaccine J&J [...] orally 2 times a day , Taking Irbesartan-hydroCHLOROthiazide 300-12.5 MG Tablet 1 tab(s) orally once a day , Taking Allopurinol 300 MG Tablet 1 tablet Orally Once a day , Taking Atenolol 100 MG Tablet 1 tablet Orally Once a day , Medication List reviewed and reconciled with the patient * Allergies: N .K.D.A. Objective: * Vitals: W t:248.0, Temp:98.4, BP:140/100, HR:72, Nurse:NICOLASA, Ht: 67.25, Repeat BP:150/90, BMI:38.55. * Examination: G eneral Examination: General Appearance: [...] ssential hypertension - I10 (Primary) 2 . N on morbid obesity due to excess calories - E66.09 3 . G eneralized anxiety disorder - F41.1 ?4. H istory of bilateral hip replacements - Z96.643 Plan: * Treatment: Value Reference Range A /G Ratio 1.3 1.1-2.5 - * A lbumin 4.6 3.5-5.3 - g/dL * A lkaline Phosphatase 129 40-129 - IU/L * A LT (SGPT) 23 <5-55 - IU/L * A ST (SGOT) 18 <5-46 - IU/L * B ilirubin, Total 0.8 <0.2-1.2 - mg/dL * B UN 13 8-23 - mg/dL * C alcium 10.1 8.6-10.4 - mg/dL * C hloride 100 97-108 - mmol/L * C O2 28 22-32 - mmol/L * C reatinine 1.10 0.70-1.30 - mg/dL * G lucose 137 H 65-99 - mg/dL * P otassium 4.1 3.5-5.3 - mmol/L * S odium 141 135-145 - mmol/L * P rotein 8.1 6.0-8.3 - g/dL * e GFR by Creatinine 74 >59 - mL/min/1.73m2 2.?Generalized anxiety disorder? Notes: He wants to try to decrease his Alprazolam dose. I suggested decreasing by a half dose a day.?? * Procedure Codes: G 2211 Complex e/m visit add on, 3077F SYST BP = 140 MM HG6 IT, 3080F DIAST BP = 90 MM HG * Follow Up: 4 Weeks * Images: Billing Information: * Visit Code: 51906 Office Visit, Est Pt., Level 4. * Procedure Codes: G2211 Complex e/m visit add on. 3077F SYST BP = 140 MM HG6 IT. 3080F DIAST BP = 90 MM HG. * Electronic signature of Dereck Starks MD on 07/06/2025 at 10:56 PM EDT Sign off status: Pending * Provider: Dereck Starks M.D. Date: 0 01/07/2025 Generated for Printi ng/Elg/eTransmitting on: 0 07/06/2025 10:56 PM EDT History and Physical Notes * [...]
--- OUTSIDE RECORDS SUMMARY | 2025-02-04 07:45 | XMS_ITS ---
Author Organization [facility] Address [address] [facility] [address] [place] [phone] Care Team Providers Care Galley Worker Name Role Phone Dereck Starks Primary Care Provider Allergies No Known Allergies Results Component Value Reference Range Notes H-Glycohemoglobin A1C Reviewed date:02/09/2025 04:12:52 PM Interpretation:Normal Performing Lab: Notes/Report: HGBA1C 5.6 4.0-6.0 % < 6% Non-Diabetic Level < 7% Controlled Diabetic Level > 8% Poorly Controlled Diabetic Level REASON FOR VISIT 4 week f/u Medications Medication SIG (Take, Route, Frequency, Duration) Notes Start Date End Date Status Atenolol 100 MG TAKE 1 TABLET BY MOUTH DAILY; Duration: 30 Active Irbesartan-hydroCHLOROthiazi de 300-12.5 MG TAKE 1 TABLET BY MOUTH DAILY; Duration: 30 Active Allopurinol 300 MG TAKE 1 TABLET BY MOUTH DAILY; Duration: 30 Active Xanax 0.5 MG 1 tab(s) orally 2 times a day 12/17/2024 Active Doxazosin Mesylate 1 MG 1 tablet Orally At Bed Time 01/07/2025 Active Cosopt 22.3-6.8 MG/ML 1 gtt in each eye twice a day Active Xalatan 0.005 % 1 gtt in each eye at bedtime Active Aspirin 81 MG 1 TAB(S) ORALLY ONCE A DAY 09/04/2010 Active hydroCHLOROthiazide 25 MG 1 tab(s) orall y once daily 01/19/2013 Active amLODIPine Besylate 10 MG TAKE 1 TABLET BY MOUTH EVERY DAY; Duration: 90 days Active Slo-Niacin 250 MG 1 tab(s) orally at bedtime 09/04/2010 Active Vital Signs Blood pressure systolic 136 mm Hg 02/05/20 25 Blood pressure diastolic 76 mm Hg 025 Heart Rate 75 /min 02/04/2025 Height 67.25 in 02/04/2025 Weight 250.4 lbs 02/04/2025 BMI 38.92 kg/m2 02/04/2025 Encounters Encounter Location Date Provider Diagnosis [facility] [address] [facility] [address] [facility] [address] [place] [phone] 02/04/2025 Dereck Satrks Essential hypertensi on I10 ; Generalized anxiety disorder F41.1 and Hyperglycemia R73.9 Assessments Encounter Date Diagnosis (ICD Code) Assessment Notes Treatment Notes Treatment Clinical Notes Section Notes 02/04/2025 Essential hypertension (ICD-10 - I10) 02/04/2025 Generalized anxiety disorder (ICD-10 - F41.1) 02/04/2025 Hyperglycemia (ICD-10 - R73.9) Plan Of Treatment Next Appt Details Follow Up: 3 Months, Reason: Provider Name:Dereck Voss er, 09/09/2025 11:00:00 AM, [address] [facility] [address] [facility], [address], [place], [phone], Progress Notes * VU LOPEZ SrDOB: (64 yo M)Acc No.[id number]:02/04/2025 Patient: VU DEGROOT Sr Provider: Dereck Starks M.D. :1960 A ge:64 Y S ex:Male Date:02/04/2025 Address:[facility] [id number] Subjective: * Chief Complaints: * 1 . 4 week f/u. * HPI: H PI: 64 year old male presents with c/o Patient is here today for?Pt is here today for a 4 week f/u on his BP medication. Pt sts he is doing good on the medication. * ROS: D ERMATOLOGY: no R mindy. [...] orally 2 times a day , Taking Doxazosin Mesylate 1 MG Tablet 1 tablet Orally At Bed Time , Taking Allopurinol 300 MG Tablet TAKE 1 TABLET BY MOUTH DAILY , Taking Atenolol 100 MG Tablet TAKE 1 TABLET BY MOUTH DAILY , Taking Irbesartan-hydroCHLOROthiazide 300-12.5 MG Tablet TAKE 1 TABLET BY MOUTH DAILY , Medication List reviewed and reconciled with the patient * Allergies: N .K.D.A. Objective: * Vitals: W t: 250.4, Temp: 98.6, BP: 136/76, HR: 75, Nurse: mmroyce, Ht: 67.25, BMI:38.92. * Examination: G eneral Examination: General Appearance: N AD. H EENT: u nremarkable.?Oral cavity: n o lesions, mucosa moist and WNL, no erythema. N ramirez: s upple, no lymphadenopathy. C hest: n ormal shape and expansion. H eart: R SR, BP= 152/82. L ungs: c lear to auscultation. A bdomen: obese, soft and nontender, no organomegaly or masses. N eurologic Exam: I ntact, gait normal. S kin: n ormal, no rash. P eripheral pulses: n ormal . E xtremities: 2 + leg edema. Assessment: * Assessment: 1. E ssential hypertension - I10 (Primary) 2 . G eneralized anxiety disorder - F41.1 3 . H yperglycemia - R73.9 Plan: * Treatment: Value Reference Range H GBA1C 5.6 4.0-6.0 - % * Britta Al 02/09/2025 4:12 :44 PM > Patient informed of normal results. * Procedure Codes: G 2211 Complex e/m visit add on, 3075F SYST BP GE 130 - 139MM HG, 3078F DIAST BP < 80 MM HG, 3044F HG A1C LEVEL LT 7.0% * Follow Up: 3 Months * Images: Billing Information: * Visit Code: 33127 Office Visit, Est Pt., Level 3. * Procedure Codes: G2211 Complex e/m visit add on. 3075F SYST BP GE 130 - 139MM HG. 3078F DIAST BP < 80 MM HG. 3044F HG A1C LEVEL LT 7.0%. * Electronic signature of Dereck Starks MD on 07/06/2025 at 10:55 PM EDT Sign off status: Pending * Provider: Dereck Starks M.D. Date: 0 02/04/2025 Generated for Jose mustafa/Alex/eTransmitting on: 0 07/06/2025 10:55 PM EDT History and Physical Notes * HPI (History of Present Illness) Category Sub-Category Detail Notes Category Not es HPI Patient is here today for Pt is here today for a 4 week f/u on his BP medication. Pt sts he is doing good on the medication Examination Category Sub-Category Detail Notes Category Not es General Examination HEENT: unremarkable Heart: RSR, BP= 152/82 Lungs: clear to auscultatio n Abdomen: obese, soft and nont jude, no organomegaly or masses Extremities: 2+ leg edema General Appearance: NAD Skin: normal, no rash Neurologic Exam: Intact, gait normal Neck: supple, no lymphaden opathy Oral cavity: no lesions, mucosa m oist and WNL, no erythema Peripheral pulses: normal Chest: normal shape and exp ansion
--- OUTSIDE RECORDS SUMMARY | 2025-05-09 07:15 | XMS_ITS ---
Author Organization [facility] Address [address] [place] [id number] Care Team Providers Care Ekg Monitor Tech Name Role Phone Dereck Starks Primary Care Provider Allergies No Known Allergies Reason For Referral Reason Dr. Brunner, needs re peat colonoscopy Diagnosis 1 History of colon meghna yps (Z86.010) Ref[facility] Referring Provider First Name Dereck Guadalupe Referring Provider Last Name Raudel Referring Provider Speciality Family Pra ctice General Notes Eduarda Chapa 2024 01:37:06 PM > 05/27 at 10:30 am; patient informed Referral Priority Routine REASON FOR VISIT 3 months, Needs labs & Prevnar Medications Medication SIG (Take, Route, Frequency, Duration) Notes Start Date End Date Status amLODIPine Besylate 10 MG 1 tablet Orall y Once a day; Duration: 90 days Active Allopurinol 300 MG TAKE 1 TABLET BY MOUTH DAILY; Duration: 30 Active Atenolol 100 MG 1 tablet Once a day; Duration: 30 days Active ALPRAZolam 0.25 MG 1 tablet Orally Thre e times a day; Duration: 30 days 04/15/2025 Active Irbesartan-hydroCHLOROthiazi de 300-12.5 MG TAKE 1 TABLET BY MOUTH DAILY; Duration: 90 Active Xalatan 0.005 % 1 gtt in each eye at bedtime Active Cosopt 22.3-6.8 MG/ML 1 gtt in each eye twice a day Active Aspirin 81 MG 1 TAB(S) ORALLY ONCE A DAY 09/04/2010 Active Doxazosin Mesylate 1 MG 1 tablet Orally At Bed Time 01/07/2025 Active hydroCHLOROthiazide 25 MG 1 tab(s) orall y once daily 01/19/2013 Active Slo-Niacin 250 MG 1 tab(s) orally at bedtime 09/04/2010 Active Problems Problem Type SNOMED Code ICD Code Onset Dates Problem Status W/U Status Risk Notes Problem Morbid obesity (disorder) ([id number]) Morbid (severe) obesity due to excess calories (E66.01) Active confirmed Vital Signs Blood pressure systolic 130 mm Hg 05/09/20 25 Blood pressure diastolic 80 mm Hg 025 Heart Rate 81 /min 05/09/2025 Height 67.25 in 05/09/2025 Weight 246.4 lbs 05/09/2025 BMI 38.3 kg/m2 05/09/2025 Encounters Encounter Location Date Provider Diagnosis [place] [address] [facility] [address] [facility] [address] [place], [place] [id number] 05/09/2025 Dereck Starks Essential hypertensi on I10 ; History of bilateral hip replacements Z96.643 ; History of colon polyps Z86.010 ; Generalized anxiety disorder F41.1 ; Hyperlipidemia, unspecified hyperlipidemia type E78.5 and Morbid (severe) obesity due to excess calories E66.01 Assessments Encounter Date Diagnosis (ICD Code) Assessment Notes Treatment Notes Treatment Clinical Notes Section Notes 05/09/2025 Essential hypertension (ICD-10 - I10) cont Rx 05/09/2025 History of bilateral hip replacements (ICD-10 - Z96.643) 05/09/2025 History of colon polyps (ICD-10 - Z86.010) 05/09/2025 Generalized anxiety disorder (ICD-10 - F41.1) 05/09/2025 Hyperlipidemia, unspecified hyperlipidemia type (ICD-10 - E78.5) 05/09/2025 Morbid (severe) obesity due to excess calories (ICD-10 - E66.01) Plan Of Treatment Treatment Notes Assessment Notes Essential hypertension cont Rx Referrals Referral Date Details 05/09/2025 05/09/2025, Dr. Narcisa singh, needs repeat colonoscopy Next Appt Details Follow Up: 4 Months, Reason: Provider Name:Dereck Voss er, 09/09/2025 11:00:00 AM, [address] [facility], [address] [place], [id number], Progress Notes * VU LOPEZ SrDOB: (64 yo M)Acc No.[id number]:05/09/2025 Progress Notes Patient: VU DEGROOT Sr Provider: Dereck Starks M.D. :1960 A ge:64 Y S ex:Male Date:05/09/2025 Address:[id number] Subjective: * Chief Complaints: * 1 . 3 months. 2. Needs labs & Prevnar. * HPI: H PI: 64 year old male presents with c/o Patient is here today for?Pt is here today for a 3 month check up. Pt states he is doing well and has no concerns at this time. * ROS: D ERMATOLOGY: no R mindy. n o H caroline. G ASTROENTEROLOGY: no N ausea. n o V omiting. n o D iarrhea.? U ROLOGY: no D ifficulty urinating. n o B lood in urine. * Medical History: H ypertension, wide angle glaucoma, followed by Dr. Ordaz, 11/26/10 Uric Acid 7.7, Dtap 2012 ER, 02/04/19 [facility] blood work, PSA=1.42, TSH=2.17, Covid vaccine J&J [...] 1 tab(s) orally once daily , Taking Doxazosin Mesylate 1 MG Tablet 1 tablet Orally At Bed Time , Taking Irbesartan-hydroCHLOROthiazide 300-12.5 MG Tablet TAKE 1 TABLET BY MOUTH DAILY , Taking ALPRAZolam 0.25 MG Tablet 1 tablet Orally Three times a day , Taking Atenolol 100 MG Tablet 1 tablet Once a day , Taking Allopurinol 300 MG Tablet TAKE 1 TABLET BY MOUTH DAILY , Taking amLODIPine Besylate 10 MG Tablet 1 tablet Orally Once a day , Medication List reviewed and reconciled with the patient * Allergies: N .K.D.A. Objective: * Vitals: W t: 246.4, Temp: 98.4, BP: 130/80, HR: 81, Nurse: [facility], Ht: 67.25, BMI:38.3. * Examination: G eneral Examination: General Appearance: [...] rash. P eripheral pulses:?normal . E xtremities: t race leg edema. Assessment: * Assessment: 1. E ssential hypertension - I10 (Primary) 2 . H istory of bilateral hip replacements - Z96.643 3 . H istory of colon polyps - Z86.010 4 .?Generalized anxiety disorder - F41.1 5 . H yperlipidemia, unspecified hyperlipidemia type - E78.5 6 . M orbid (severe) obesity due to excess calories - E66.01 Plan: * Treatment: 2. H istory of colon polyps Referral To: Reason:Dr. Brunner, needs repeat colonoscopy * Procedure Codes: G 2211 Complex e/m visit add on, 1036F TOBACCO NON-USER, G8950 PREHTN/HTN BP DOC INDCD F/U DOC, G8752 MOST RECENT SYSTOLIC BP < 140MM HG, G8754 MOST RECENT DIASTOLIC BP < 90MM HG * Follow Up: 4 Months * Images: Billing Information: * Visit Code: 25122 Office Visit, Est Pt., Level 4. * Procedure Codes: G2211 Complex e/m visit add on. 1036F TOBACCO NON-USER. G8950 PREHTN/HTN BP DOC INDCD F/U DOC. G8752 MOST RECENT SYSTOLIC BP < 140MM HG. G8754 MOST RECENT DIASTOLIC BP < 90MM HG. * Electronic signature of Dereck Starks MD on 07/06/2025 at 10:55 PM EDT Sign off status: Pending * Provider: Dereck Starks M.D. Date: 0 05/09/2025 Generated for Jose mustafa/Alex/eTransmitting on: 0 07/06/2025 10:55 PM EDT History and Physical Notes * HPI (History of Present Illness) Category Sub-Category Detail Notes Category Not es HPI Patient is here today for Pt is here today for a 3 month check up. Pt states he is doing well and has no concerns at this time Examination Category Sub-Category Detail Notes Category Not es General Examination HEENT: unremarkable Heart: RSR Lungs: clear to auscultatio n Abdomen: obese, soft and nont jude, no organomegaly or masses Extremities: trace leg edema General Appearance: NAD Skin: normal, no rash Neurologic Exam: Intact, gait normal Neck: supple, no lymphaden opathy Oral cavity: no lesions, mucosa m oist and WNL, no erythema Peripheral pulses: normal Chest: normal shape and exp ansion Consultation Request Notes Referral Date Referring Provider Referred Provider Not es 05/09/2025 Dereck Starks , Dr. Brunner , needs repeat colonoscopy
[2025-07-06 22:36] VITALS: BP 164/81; PULSE 88; RESP 18; TEMP 36.4; O2SAT 98; BMI 39.5
[2025-07-06] MEDS: LIDOCAINE 1% W/EPI 1:100,000 20ML VIAL 20 ML SQ (23:08)
[2025-07-06] MEDS: TET/DIPHTH/PERT-ADULT 0.5ML SYRINGE 0.5 ML IM (23:23)
[2025-07-06] MEDS: BACITRACIN ZINC OINT 30GM TUBE TP (23:32)
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
[2025-07-06 23:44] VITALS: BP 157/84; PULSE 88; RESP 18; TEMP 36.6; O2SAT 98
== END 2025-07-06 23:45 | disposition home or self-care (01) ==
PROVIDERS: Emergency Provider Emergency Medicine; PCP Family Medicine
DX: S81.811A Laceration without foreign body, right lower leg, initial encounter (principal); W26.8XXA Contact with other sharp object(s), not elsewhere classified, initial encounter
CPT/HCPCS: 12004; 90471; 90715; 99283; J2004

== ENCOUNTER 2025-08-29 09:00 | Outpatient (RCR) | payer MEDICARE, SELFPAY ==
--- NOTE | 2025-08-16 15:50 | HMH.PTOPWND ---
Rehab Wound Evaluation Rehab OP Wound Evaluation Start: 08/16/25 15:38 Freq: Status: Active Protocol: Document 08/16/25 15:39 PHOSHAKILA (Rec: 08/16/25 15:50 PHORNE [id number]) E-signed By Leroy Huber, PT Subjective/History History History This is the initial PT wound care eval for Moustapha German, 64 yoaam who presents with R lateral lower leg wound x ~ 1 mo. He suffered an accidental laceration with primary intention closure initially, but the wound did not remain closed as expected. He reports no c/o pain at this time, but some weston-wound tenderness. He reports no significant PMH. Subjective Subjective Pain currently 0/10. TTP 1/4 medial and inferior wound borders and weston-wound skin. 1+ pitting edema noted to L lower leg. Wound Eval Wound Right Lower Lateral Leg Wound Type Laceration Is This a Chronic Yes Wound Wound Length (cm) 4.9 Wound Width (cm) 2.2 Wound Depth (cm) 0.2 Wound Bed Appearance Beefy Red,Yellow Percentage 95 Granulated (%) Percentage of Slough 5 (%) Wound Margins Well Defined Description Edema Type Pitting Edema Degree 1+ Query Text:1+ Trace, Barely Detectable, Rebound 15-30 seconds 2+ Moderate, Slight Indentation, Rebound 10-20 seconds 3+ Deep, Deeper Indentation, Rebound > 30 seconds 4+ Very Deep, Rebound > 60 seconds Drainage Description Serosanguineous Drainage Amount Small Wound Topical Saline Irrigant Solution/Irrigant Primary Dressing collagen Comment puracol Wound Secondary Composite Dressing Type Comment optifoam gentle border Wound Debridement Sharps,Forceps,Gauze,Mechanical Method Wound Debridement Minimal Amount of Tissue Removed Dressing Change Tolerated Well Patient Tolerance Bran-Monae Wound Assessment Tool Assessment Wound size 2=Length x Width 4--<16 sq cm Wound depth 3=Full thickness skin loss involving damage or necrosis of Wound edges 3=Well-defined, not attached to wound base Wound undermining 1=None present Necrotic tissue type 2=White/pascual non-viable tissue &/or non-adherent yellow slough Necrotic tissue 2=<25% of wound bed covered amount Exudate type 3=Serosanguineous: thin, watery, pale red/pink Exudate amount 3=Small Skin color 1=[place] or normal for ethnic group surrounding wound Peripheral tissue 4=Pitting edema extends <4 cm around wound edema Peripheral tissue 1=None present induration Granulation tissue 2=Bright, beefy red;75% to 100% of wound filled &/or tissue overgrowth Epithelialization 5= < 25% wound covered Wound assessment 32 total score Wound Problems/Impairments Impairments Problems/ Palpation Tenderness,Impaired Shower/Bathing,Impaired Impairmments Recreational Activities,Increased Edema,Wound Care Needs,Impaired Self Care/Self Management Prognosis Rehab Potential Good Comment Skilled therapy is indicated in order to reduce overall wound surface area and debride necrotic tissue in order to improve pt QOL and aid wound healing time. Clinical Impression Consistent with Yes Diagnosis Wound Patient Goals Wound Patient Goals Wound Short Term In 2 wks pt will: Patient Goals 1) Decrease R lower leg wound size by 25% Wound Traveling Inventory Associate In 4 wks pt will: Patient Goals 1) Decrease R lower leg wound size by 75% 2) Increase R lower leg wound bed to 100% granulation tissue. Outpatient Therapy Plan of Care Treatment Plan May Include Therapeutic Exercise Yes Including Home Exercise Program Manual Therapy Yes Techniques Neuromuscular Re- Yes education Therapeutic Yes Activities to Return to Previous Functional/Work Level ADL/Self Care Yes Education Wound Care Yes Frequency Times per week 1 Duration Number of Weeks 4 Addendums This patient is a No candidate for social or vocational rehab ? Patient/Guardian Yes verbally acknowledges understanding of treatment program and consents to further treatment? Patient/Guardian Yes verbally acknowledges understanding of diagnosis, prognosis and goals for treatment? Eval Complexity PT Charges 12907 - Moderate Complexity PHYSICIAN CERTIFICATION: I certify the specified therapy services for Moustapha German SR are required, authorized, and reviewed every 30 days.
== END 2025-08-29 23:59 | disposition home or self-care (01) ==
LOC: PT 09:00
PROVIDERS: Visit Provider Family Medicine
DX: S81.801D Unspecified open wound, right lower leg, subsequent encounter (principal)
CPT/HCPCS: 97162; 97597